=== PATIENT | male | born 1930 | race Caucasian/White ===

== ENCOUNTER 2017-07-15 02:55 | Observation (INO) | payer MEDICARE ==
[~2017-07-15] VITALS: Wt 91.8 kg
[~2017-07-15 02:55] MED LIST: ALEVE; ALTOPREV20 MG PO; ASPIR-LOW81 MG PO; ASPIRIN 81M81 MG/TA2 PO; CENTRUM SILVER1 CTB PO; DYRENIUM 50MG C50 MG PO; LEVAQUIN 750MG750 M1; NAPROSYN500 MG PO; NORCO 325 MG-51 TAB PO; PHENERGAN 25 TA25 MG PO; TUSS PO; ULTRAM 50MG TAB50 MG PO
[2017-07-15] MEDS ORDERED: ZOCOR 20MG20 MG PO (03:22)
[2017-07-15 03:52] LABS: BASO % 0.3 % (0.0-2.0); EOS # 0.2 (0.0-0.7); EOS % 2.3 % (0-4.0); GRAN # 6.4 (1.4-6.5); GRAN % 70.1 % (42.2-75.2); HEMATOCRIT 39.9 % (42.0-52.0); HEMOGLOBIN 13.9 g/dl (13.5-18.0); LYMPH # 1.6 (1.2-3.4); LYMPH % 16.9 % (20.0-51.0); MEAN CELL VOLUME 94 fl (80.0-100.0); MEAN CORPUSCULAR HEMOGLOBIN 33 pg (27.0-31.0); MEAN CORPUSCULAR HGB CONC 35 g/dl (33.0-37.0); MEAN PLATELET VOLUME 9.3 fl (7.4-10.4); MONO # 0.9 (0.1-0.6); MONO % 9.3 % (1.7-9.3); PLATELET COUNT 210 K/mm3 (130-400); RED BLOOD COUNT 4.25 M/mm3 (4.20-5.60); REDCELL DISTRIBUTION WIDTH-CV 12.7 % (11.5-14.5)
[2017-07-15 03:59] LABS: PROTHROMBIN TIME 11.3 SECONDS (9.7-12.8)
[2017-07-15 04:03] LABS: ALANINE AMINOTRANSFERASE 31 U/L (21-72); ALBUMIN 3.4 gm/dL (3.5-5.0); ALKALINE PHOSPHATASE 46 U/L (50-136); ANION GAP 13 mmol/L (7-16); AST,SGOT 24 U/L (15-37); BILIRUBIN,TOTAL 0.5 mg/dL (0.0-1.0); BLOOD UREA NITROGEN 19 mg/dL (9-20); CALCIUM 8.7 mg/dL (8.4-10.2); CARBON DIOXIDE 24 mmol/L (22-30); CHLORIDE 105 mmol/L (98-107); CREATININE, serum 0.83 mg/dL (0.66-1.25); GLUCOSE 115 mg/dL (74-106); LIPASE < 10 U/L (23-300); POTASSIUM 4.1 mmol/L (3.4-5.0); SODIUM 142 mmol/L (137-145); TOTAL PROTEIN 6.8 gm/dL (6.4-8.2)
[2017-07-15 04:55] LABS: COLLECTION METHOD CATHETER
[2017-07-15 05:06] LABS: PH 6 (5-8); SQUAMOUS EPITHELIAL None Seen /hpf; URINE APPEARANCE Clear; URINE BACTERIA None Seen /hpf; URINE BILIRUBIN Negative (NEGATIVE); URINE BLOOD Negative (NEGATIVE); URINE COLOR Yellow; URINE GLUCOSE Negative (NEGATIVE); URINE KETONE Negative (NEGATIVE); URINE LEUKOCYTE ESTERASE Negative (NEGATIVE); URINE NITRATE Negative (NEGATIVE); URINE PROTEIN(semi-quant) Negative (NEGATIVE); URINE RBC 0-2 /hpf; URINE UROBILINOGEN Negative (NEGATIVE)
[2017-07-15] MEDS ORDERED: MEVACOR 20M20 MG/TAB PO (06:11)
[2017-07-15 08:50] VITALS: BP 151/69; PULSE 63; TEMP 97.9
[2017-07-15 12:36] VITALS: BP 120/64; PULSE 60; TEMP 97.5
[2017-07-15 14:25] LABS: BASO % 0.4 % (0.0-2.0); EOS # 0.2 (0.0-0.7); EOS % 2.2 % (0-4.0); GRAN # 5.3 (1.4-6.5); HEMATOCRIT 39.2 % (42.0-52.0); HEMOGLOBIN 13.6 g/dl (13.5-18.0); LYMPH # 1.6 (1.2-3.4); LYMPH % 20.2 % (20.0-51.0); MEAN CELL VOLUME 95 fl (80.0-100.0); MEAN CORPUSCULAR HEMOGLOBIN 33 pg (27.0-31.0); MEAN CORPUSCULAR HGB CONC 35 g/dl (33.0-37.0); MEAN PLATELET VOLUME 9.3 fl (7.4-10.4); MONO # 0.7 (0.1-0.6); MONO % 8.4 % (1.7-9.3); PLATELET COUNT 214 K/mm3 (130-400); RED BLOOD COUNT 4.14 M/mm3 (4.20-5.60); REDCELL DISTRIBUTION WIDTH-CV 12.8 % (11.5-14.5)
[2017-07-15 16:21] VITALS: BP 161/73; PULSE 59; TEMP 98.2
[2017-07-15 20:01] VITALS: BP 111/52; PULSE 73; TEMP 97.3
[2017-07-16 00:24] VITALS: BP 136/55; PULSE 73; TEMP 98.2
[2017-07-16 04:00] VITALS: BP 132/66; PULSE 72; TEMP 98.5
[2017-07-16 06:46] LABS: HEMOGLOBIN 13.3 g/dl (13.5-18.0); MEAN CELL VOLUME 97 fl (80.0-100.0); MEAN CORPUSCULAR HEMOGLOBIN 33 pg (27.0-31.0); MEAN CORPUSCULAR HGB CONC 34 g/dl (33.0-37.0); MEAN PLATELET VOLUME 9.9 fl (7.4-10.4); PLATELET COUNT 220 K/mm3 (130-400); RED BLOOD COUNT 4.03 M/mm3 (4.20-5.60); REDCELL DISTRIBUTION WIDTH-CV 13.1 % (11.5-14.5)
[2017-07-16 07:24] LABS: CALCIUM 8.4 mg/dL (8.4-10.2); CREATININE, serum 1.05 mg/dL (0.66-1.25); POTASSIUM 4.1 mmol/L (3.4-5.0)
[2017-07-16 08:01] VITALS: BP 141/54; PULSE 78; TEMP 97.7
[2017-07-16 09:23] LABS: BAND 13 % (0-10); EOSINOPHIL 5 % (0-4); LYMPHOCYTE 19 % (20.0-51.0); METAMYELOCYTE 2 % (0-0); NEUTROPHILS 58 % (42.0-75.2); PLATELET ESTIMATE NORMAL (NORMAL)
[2017-07-16 11:46] VITALS: BP 128/54; PULSE 74; TEMP 97.5
[2017-07-16] MEDS ORDERED: TYLENOL 325MG325 MG PO (11:56)
[2017-07-16 13:27] VITALS: BP 128/54; PULSE 74; TEMP 97.5
[2017-07-16] MEDS ORDERED: NORCO 325 MG-51 TAB PO (14:55)
== END 2017-07-16 13:55 ==
LOC: COL.ER 02:55 → SURG 06:28
PROVIDERS: Emergency Medicine; Physician Assistant
DX: S91.112A Laceration without foreign body of left great toe without damage to nail, initial encounter (principal); W01.0XXA Fall on same level from slipping, tripping and stumbling without subsequent striking against object, initial encounter; I10 Essential (primary) hypertension; M25.562 Pain in left knee; M25.552 Pain in left hip; E78.5 Hyperlipidemia, unspecified; R53.81 Other malaise; M19.90 Unspecified osteoarthritis, unspecified site; G89.29 Other chronic pain; M54.5 Low back pain; Z90.49 Acquired absence of other specified parts of digestive tract; Z96.643 Presence of artificial hip joint, bilateral; Z96.653 Presence of artificial knee joint, bilateral; Z79.82 Long term (current) use of aspirin; Z88.8 Allergy status to other drugs, medicaments and biological substances; Z87.891 Personal history of nicotine dependence; Z85.46 Personal history of malignant neoplasm of prostate
CPT/HCPCS: 99232-AI; A4314; G0378; G8978-GP; G8979-GP; G8987-GO; G8988-GO; J1170; J2405; J3010; J7030; J7040; Q9967

== ENCOUNTER 2017-07-16 13:59 | Inpatient (IN) | payer MEDICARE ==
[~2017-07-16] VITALS: Ht 165.1 cm; Wt 93.4 kg
[~2017-07-16 13:59] MED LIST changes: +MEVACOR 20M20 MG/TAB PO; +TYLENOL 325MG325 MG PO; +ZOCOR 20MG20 MG PO
[2017-07-16 14:44] VITALS: BP 144/54; PULSE 71; TEMP 97.7
[2017-07-16] MEDS ORDERED: NORCO 325 MG-51 TAB PO (14:55)
[2017-07-16 18:12] VITALS: BP 140/55; PULSE 72; TEMP 97
[2017-07-16 19:05] LABS: BASO % 0.3 % (0.0-2.0); EOS # 0.3 (0.0-0.7); EOS % 3.6 % (0-4.0); GRAN # 5.3 (1.4-6.5); GRAN % 61.9 % (42.2-75.2); HEMATOCRIT 38.9 % (42.0-52.0); HEMOGLOBIN 13.3 g/dl (13.5-18.0); LYMPH # 2.1 (1.2-3.4); LYMPH % 23.8 % (20.0-51.0); MEAN CELL VOLUME 96 fl (80.0-100.0); MEAN CORPUSCULAR HEMOGLOBIN 33 pg (27.0-31.0); MEAN CORPUSCULAR HGB CONC 34 g/dl (33.0-37.0); MEAN PLATELET VOLUME 9.8 fl (7.4-10.4); MONO # 0.8 (0.1-0.6); MONO % 9.1 % (1.7-9.3); PLATELET COUNT 221 K/mm3 (130-400); RED BLOOD COUNT 4.07 M/mm3 (4.20-5.60); REDCELL DISTRIBUTION WIDTH-CV 12.9 % (11.5-14.5)
[2017-07-16 19:10] LABS: CALCIUM 8.6 mg/dL (8.4-10.2); CREATININE, serum 0.93 mg/dL (0.66-1.25); POTASSIUM 3.9 mmol/L (3.4-5.0)
[2017-07-17 06:22] VITALS: BP 129/58; PULSE 76; TEMP 98
[2017-07-17 16:53] VITALS: BP 144/58; PULSE 71; TEMP 97.9
[2017-07-18 06:00] VITALS: BP 157/66; PULSE 69; TEMP 98
[2017-07-18 16:36] VITALS: BP 145/65; PULSE 71; TEMP 98
[2017-07-19 05:34] VITALS: BP 176/66; PULSE 80; TEMP 97.9
[2017-07-19 18:10] VITALS: BP 136/63; PULSE 88; TEMP 98.4
[2017-07-20 06:00] VITALS: BP 134/69; PULSE 74; TEMP 98.2
[2017-07-20 17:34] VITALS: BP 130/66; PULSE 72; TEMP 97.4
[2017-07-21 06:00] VITALS: BP 156/79; PULSE 82; TEMP 98.2
[2017-07-21 16:08] VITALS: BP 129/60; PULSE 86; TEMP 98.4
[2017-07-22 05:55] VITALS: BP 132/72; PULSE 76; TEMP 98.4
[2017-07-22 16:10] VITALS: BP 155/75; PULSE 71; TEMP 98
[2017-07-23 05:11] VITALS: BP 159/73; PULSE 93; TEMP 97.6
[2017-07-23 17:28] VITALS: BP 125/40; PULSE 75; TEMP 97.7
[2017-07-24 05:14] VITALS: BP 129/63; PULSE 85; TEMP 97.9
[2017-07-24 18:07] VITALS: BP 136/63; PULSE 71; TEMP 97.9
[2017-07-25 05:17] VITALS: BP 124/55; PULSE 80; TEMP 97.9
[2017-07-25 15:58] VITALS: BP 145/87; PULSE 72; TEMP 98.6
[2017-07-26 06:25] VITALS: BP 138/74; PULSE 76; TEMP 98.6
[2017-07-26 15:28] VITALS: BP 137/48; PULSE 71; TEMP 98.5
[2017-07-27 05:47] VITALS: BP 134/69; PULSE 86; TEMP 98.4
[2017-07-27 15:41] VITALS: BP 151/64; PULSE 63; TEMP 98.4
[2017-07-28 06:12] VITALS: BP 149/75; PULSE 73; TEMP 97.6
[2017-07-28] MEDS ORDERED: GOOD SENSE TRIP1 OI1 TP (08:24)
[2017-07-28] MEDS ORDERED: SENOKOT S 50 MG1 TAB PO (08:24)
[2017-07-28] MEDS ORDERED: COLACE 100100 MG/CAP PO (08:24)
[2017-07-28] MEDS ORDERED: ASPIRIN E.C. 8181 MG PO (08:25)
[2017-07-28] MEDS ORDERED: ULTRAM 50MG TAB50 MG PO (08:26)
[2017-07-28] MEDS ORDERED: PROAIR HFA0.09 MG/AC IH (08:26)
== END 2017-07-28 12:35 | disposition home or self-care (01) | DRG 948 ==
PROVIDERS: Nurse Practitioner Family
DX: R53.81 Other malaise (principal); S70.02XD Contusion of left hip, subsequent encounter; S91.112D Laceration without foreign body of left great toe without damage to nail, subsequent encounter; I10 Essential (primary) hypertension; M54.9 Dorsalgia, unspecified; G89.29 Other chronic pain; Z85.46 Personal history of malignant neoplasm of prostate
CPT/HCPCS: 99222-AI; 99232-AI; 99239

== ENCOUNTER 2017-08-20 08:33 | Emergency (ER) | payer MEDICARE ==
[~2017-08-20] VITALS: Ht 167.6 cm; Wt 90.9 kg
[~2017-08-20 08:33] MED LIST changes: +ASPIRIN E.C. 8181 MG PO; +COLACE 100100 MG/CAP PO; +GOOD SENSE TRIP1 OI1 TP; +PROAIR HFA0.09 MG/AC IH; +SENOKOT S 50 MG1 TAB PO
[2017-08-20 08:35] VITALS: TEMP 97.8
[2017-08-20 08:56] LABS: BASO # 0.1 (0.0-0.2); BASO % 0.5 % (0.0-2.0); EOS # 0.2 (0.0-0.7); EOS % 1.7 % (0-4.0); GRAN # 6.6 (1.4-6.5); GRAN % 69.5 % (42.2-75.2); HEMATOCRIT 46.9 % (42.0-52.0); HEMOGLOBIN 16.7 g/dl (13.5-18.0); LYMPH # 1.7 (1.2-3.4); LYMPH % 18.3 % (20.0-51.0); MEAN CELL VOLUME 91 fl (80.0-100.0); MEAN CORPUSCULAR HEMOGLOBIN 33 pg (27.0-31.0); MEAN CORPUSCULAR HGB CONC 36 g/dl (33.0-37.0); MEAN PLATELET VOLUME 9.4 fl (7.4-10.4); MONO # 0.9 (0.1-0.6); MONO % 9.2 % (1.7-9.3); PLATELET COUNT 237 K/mm3 (130-400); RED BLOOD COUNT 5.14 M/mm3 (4.20-5.60); REDCELL DISTRIBUTION WIDTH-CV 13.1 % (11.5-14.5)
[2017-08-20 09:02] LABS: PROTHROMBIN TIME 10.8 SECONDS (9.7-12.8)
[2017-08-20 09:11] LABS: ALANINE AMINOTRANSFERASE 32 U/L (21-72); ALBUMIN 4.3 gm/dL (3.5-5.0); ALKALINE PHOSPHATASE 66 U/L (50-136); ANION GAP 15 mmol/L (7-16); AST,SGOT 30 U/L (15-37); BILIRUBIN,TOTAL 0.6 mg/dL (0.0-1.0); BLOOD UREA NITROGEN 14 mg/dL (9-20); CALCIUM 10.2 mg/dL (8.4-10.2); CARBON DIOXIDE 22 mmol/L (22-30); CHLORIDE 101 mmol/L (98-107); CREATININE, serum 0.81 mg/dL (0.66-1.25); GLUCOSE 134 mg/dL (74-106); SODIUM 137 mmol/L (137-145); TOTAL PROTEIN 8.6 gm/dL (6.4-8.2)
[2017-08-20 09:17] LABS: LIPASE < 10 U/L (23-300)
[2017-08-20 09:22] LABS: TROPONIN-I 0.012 ng/mL (0.000-0.034)
[2017-08-20 11:30] VITALS: BP 173/86; PULSE 70
== END 2017-08-20 11:35 | disposition home or self-care (01) ==
LOC: COL.ER 08:33
PROVIDERS: Family Medicine
DX: K30 Functional dyspepsia (principal); Z79.82 Long term (current) use of aspirin
CPT/HCPCS: C9113

== ENCOUNTER → 2017-08-23 | Outpatient (CLI) | payer MEDICARE | LOC: COL.RAD 13:43 | DX: K86.2 Cyst of pancreas (principal); Z90.49 Acquired absence of other specified parts of digestive tract | CPT/HCPCS: Q9967 ==

== ENCOUNTER 2017-08-25 18:08 | Emergency (ER) | payer MEDICARE ==
[~2017-08-25] VITALS: Ht 172.7 cm; Wt 90.9 kg
[2017-08-25 18:10] VITALS: TEMP 97.9
[2017-08-25 18:46] LABS: BASO % 0.2 % (0.0-2.0); EOS # 0.2 (0.0-0.7); EOS % 2.1 % (0-4.0); GRAN # 5.2 (1.4-6.5); GRAN % 64.3 % (42.2-75.2); HEMATOCRIT 41.8 % (42.0-52.0); HEMOGLOBIN 15.1 g/dl (13.5-18.0); LYMPH # 1.8 (1.2-3.4); LYMPH % 21.8 % (20.0-51.0); MEAN CELL VOLUME 90 fl (80.0-100.0); MEAN CORPUSCULAR HEMOGLOBIN 33 pg (27.0-31.0); MEAN CORPUSCULAR HGB CONC 36 g/dl (33.0-37.0); MEAN PLATELET VOLUME 9.3 fl (7.4-10.4); MONO # 0.9 (0.1-0.6); MONO % 10.5 % (1.7-9.3); PLATELET COUNT 230 K/mm3 (130-400); RED BLOOD COUNT 4.64 M/mm3 (4.20-5.60); REDCELL DISTRIBUTION WIDTH-CV 13.1 % (11.5-14.5)
[2017-08-25] MEDS ORDERED: PROTONIX 40MG T40 MG PO (18:50)
[2017-08-25 18:58] LABS: ALBUMIN 4.1 gm/dL (3.5-5.0); BILIRUBIN,TOTAL 0.8 mg/dL (0.0-1.0); C-REACTIVE PROTEIN 0.6 mg/dL (0.0-0.9); CALCIUM 9.4 mg/dL (8.4-10.2); CREATININE, serum 0.88 mg/dL (0.66-1.25); POTASSIUM 3.9 mmol/L (3.4-5.0)
[2017-08-25 20:12] LABS: COLLECTION METHOD CLEAN CATCH
[2017-08-25 20:24] LABS: MUCOUS Present /lpf; PH 6 (5-8); SQUAMOUS EPITHELIAL 0-2 /hpf; URINE APPEARANCE Clear; URINE BACTERIA None Seen /hpf; URINE BILIRUBIN Negative (NEGATIVE); URINE BLOOD Negative (NEGATIVE); URINE COLOR Yellow; URINE GLUCOSE Negative (NEGATIVE); URINE KETONE Trace (NEGATIVE); URINE LEUKOCYTE ESTERASE Negative (NEGATIVE); URINE NITRATE Negative (NEGATIVE); URINE PROTEIN(semi-quant) Negative (NEGATIVE); URINE RBC 0-2 /hpf; URINE UROBILINOGEN Negative (NEGATIVE)
[2017-08-25 21:20] VITALS: BP 155/72; PULSE 72
[2017-08-26] MEDS ORDERED: ALMACONE 360 M360 ML PO (14:52)
== END 2017-08-25 21:10 | disposition home or self-care (01) ==
LOC: COL.ER 18:08
PROVIDERS: Emergency Medicine
DX: R10.12 Left upper quadrant pain (principal); R10.13 Epigastric pain; Z79.82 Long term (current) use of aspirin
CPT/HCPCS: J1170; J1885; J3010; J7030

== ENCOUNTER 2017-08-26 14:17 | Day surgery (SDC) | payer MEDICARE ==
[~2017-08-26] VITALS: Ht 167.6 cm; Wt 91.5 kg
[~2017-08-26 14:17] MED LIST changes: +PROTONIX 40MG T40 MG PO
[2017-08-26 14:52] VITALS: BP 120/74; PULSE 62; TEMP 97.7
[2017-08-26] MEDS ORDERED: ALMACONE 360 M360 ML PO (14:52)
[2017-08-26 16:10] VITALS: BP 110/64; PULSE 58; TEMP 98.7
[2017-08-26 16:30] VITALS: BP 106/67; PULSE 58
[2017-08-26 16:45] VITALS: BP 115/61; PULSE 60
[2017-08-26 17:00] VITALS: BP 142/74; PULSE 68
[2017-08-26 17:15] VITALS: BP 133/74; PULSE 61
== END 2017-08-26 17:40 | disposition home or self-care (01) ==
LOC: SDCO 14:17
DX: K21.0 Gastro-esophageal reflux disease with esophagitis (principal); K29.30 Chronic superficial gastritis without bleeding
CPT/HCPCS: J2250; J3010; J7030

== ENCOUNTER 2017-09-16 09:45 | Outpatient (RCR) | payer MEDICARE ==
[~2017-09-16 09:45] MED LIST changes: +ALMACONE 360 M360 ML PO
== END 2017-09-16 12:13 | disposition home or self-care (01) ==
LOC: MKS.ESL.PT 09:45
DX: S70.02XD Contusion of left hip, subsequent encounter (principal); S91.112D Laceration without foreign body of left great toe without damage to nail, subsequent encounter; W19.XXXD Unspecified fall, subsequent encounter
CPT/HCPCS: G8978-GP; G8979-GP; G8980-GP

== ENCOUNTER 2017-09-19 10:17 | Observation (INO) | payer MEDICARE ==
[~2017-09-19] VITALS: Ht 172.7 cm; Wt 89.7 kg
[2017-09-19 11:18] LABS: COLLECTION METHOD CLEAN CATCH
[2017-09-19 11:21] LABS: HEMATOCRIT 42.1 % (42.0-52.0); HEMOGLOBIN 14.5 g/dl (13.5-18.0); MEAN CELL VOLUME 94 fl (80.0-100.0); MEAN CORPUSCULAR HEMOGLOBIN 32 pg (27.0-31.0); MEAN CORPUSCULAR HGB CONC 34 g/dl (33.0-37.0); MEAN PLATELET VOLUME 9.7 fl (7.4-10.4); PLATELET COUNT 233 K/mm3 (130-400); RED BLOOD COUNT 4.48 M/mm3 (4.20-5.60); REDCELL DISTRIBUTION WIDTH-CV 13.1 % (11.5-14.5)
[2017-09-19 11:25] LABS: MUCOUS Present /lpf; PH 6 (5-8); SQUAMOUS EPITHELIAL None Seen /hpf; URINE APPEARANCE Clear; URINE BACTERIA None Seen /hpf; URINE BILIRUBIN Negative (NEGATIVE); URINE BLOOD Negative (NEGATIVE); URINE COLOR Yellow; URINE GLUCOSE Negative (NEGATIVE); URINE KETONE Negative (NEGATIVE); URINE LEUKOCYTE ESTERASE Negative (NEGATIVE); URINE NITRATE Negative (NEGATIVE); URINE PROTEIN(semi-quant) 1+ (NEGATIVE); URINE RBC 0-2 /hpf; URINE UROBILINOGEN Negative (NEGATIVE)
[2017-09-19 11:32] LABS: ALANINE AMINOTRANSFERASE 30 U/L (21-72); ALBUMIN 3.9 gm/dL (3.5-5.0); ALKALINE PHOSPHATASE 45 U/L (50-136); ANION GAP 11 mmol/L (7-16); AST,SGOT 20 U/L (15-37); BILIRUBIN,TOTAL 0.4 mg/dL (0.0-1.0); BLOOD UREA NITROGEN 17 mg/dL (9-20); CALCIUM 9.4 mg/dL (8.4-10.2); CARBON DIOXIDE 24 mmol/L (22-30); CHLORIDE 103 mmol/L (98-107); CREATININE, serum 0.89 mg/dL (0.66-1.25); GLUCOSE 112 mg/dL (74-106); POTASSIUM 4.3 mmol/L (3.4-5.0); SODIUM 139 mmol/L (137-145); TOTAL PROTEIN 7.1 gm/dL (6.4-8.2)
[2017-09-19 11:34] LABS: LIPASE < 10 U/L (23-300)
[2017-09-19 11:42] LABS: TROPONIN-I < 0.012 ng/mL (0.000-0.034)
[2017-09-19 12:16] LABS: BAND 14 % (0-10); LYMPHOCYTE 20 % (20.0-51.0); NEUTROPHILS 61 % (42.0-75.2); PLATELET ESTIMATE NORMAL (NORMAL)
[2017-09-19 15:53] VITALS: BP 143/70; PULSE 62; TEMP 98.4
[2017-09-19 20:09] VITALS: BP 151/61; PULSE 62; TEMP 98.1
[2017-09-20 01:11] VITALS: BP 141/75; PULSE 63; TEMP 97.9
[2017-09-20 04:05] VITALS: BP 153/60; PULSE 56; TEMP 97.9
[2017-09-20 07:07] VITALS: BP 172/71; PULSE 69; TEMP 98.6
[2017-09-20 07:33] LABS: ALANINE AMINOTRANSFERASE 30 U/L (21-72); ALBUMIN 3.5 gm/dL (3.5-5.0); ALKALINE PHOSPHATASE 44 U/L (50-136); ANION GAP 7 mmol/L (7-16); AST,SGOT 21 U/L (15-37); BILIRUBIN,TOTAL 0.5 mg/dL (0.0-1.0); BLOOD UREA NITROGEN 14 mg/dL (9-20); CALCIUM 8.8 mg/dL (8.4-10.2); CARBON DIOXIDE 28 mmol/L (22-30); CHLORIDE 103 mmol/L (98-107); CREATININE, serum 0.94 mg/dL (0.66-1.25); GLUCOSE 89 mg/dL (74-106); POTASSIUM 4.1 mmol/L (3.4-5.0); SODIUM 139 mmol/L (137-145); TOTAL PROTEIN 6.5 gm/dL (6.4-8.2)
[2017-09-20 07:38] LABS: HEMATOCRIT 39.1 % (42.0-52.0); HEMOGLOBIN 13.5 g/dl (13.5-18.0); MEAN CELL VOLUME 95 fl (80.0-100.0); MEAN CORPUSCULAR HEMOGLOBIN 33 pg (27.0-31.0); MEAN CORPUSCULAR HGB CONC 35 g/dl (33.0-37.0); MEAN PLATELET VOLUME 9.8 fl (7.4-10.4); PLATELET COUNT 218 K/mm3 (130-400); RED BLOOD COUNT 4.12 M/mm3 (4.20-5.60); REDCELL DISTRIBUTION WIDTH-CV 12.9 % (11.5-14.5)
[2017-09-20 07:40] LABS: TROPONIN-I < 0.012 ng/mL (0.000-0.034)
[2017-09-20 08:21] LABS: BAND 7 % (0-10); EOSINOPHIL 2 % (0-4); LYMPHOCYTE 24 % (20.0-51.0); NEUTROPHILS 57 % (42.0-75.2)
[2017-09-20 08:22] LABS: PLATELET ESTIMATE NORMAL (NORMAL)
[2017-09-20 11:37] VITALS: BP 129/51; PULSE 55; TEMP 97.6
[2017-09-20 12:05] VITALS: BP 121/69; PULSE 91; TEMP 97.8
[2017-09-20] MEDS ORDERED: LIPITOR 40MG TA40 MG PO (14:30)
[2017-09-20] MEDS ORDERED: ASPI325T6 PO (14:30)
== END 2017-09-20 16:30 | disposition home or self-care (01) ==
LOC: COL.ER 10:17 → MEDICAL 13:26
PROVIDERS: Emergency Medicine; Family Medicine; Internal Medicine
DX: G45.9 Transient cerebral ischemic attack, unspecified (principal); F03.90 Unspecified dementia, unspecified severity, without behavioral disturbance, psychotic disturbance, mood disturbance, and anxiety; I10 Essential (primary) hypertension; E78.5 Hyperlipidemia, unspecified; K21.9 Gastro-esophageal reflux disease without esophagitis; R73.9 Hyperglycemia, unspecified; I45.10 Unspecified right bundle-branch block; I08.1 Rheumatic disorders of both mitral and tricuspid valves; Z79.82 Long term (current) use of aspirin; Z85.46 Personal history of malignant neoplasm of prostate; Z87.891 Personal history of nicotine dependence; Z82.49 Family history of ischemic heart disease and other diseases of the circulatory system
CPT/HCPCS: A9585; G0378; G8978-GP; G8979-GP; G8987-GO; G8988-GO; J7030

== ENCOUNTER 2017-10-07 11:15 | Outpatient (RCR) | payer MEDICARE ==
[~2017-10-07 11:15] MED LIST changes: +ASPI325T6 PO; +LIPITOR 40MG TA40 MG PO
== END 2017-12-20 | disposition home or self-care (01) ==
LOC: MKS.ESL.PT
DX: R55 Syncope and collapse (principal); R41.82 Altered mental status, unspecified; R26.89 Other abnormalities of gait and mobility; Z91.81 History of falling; Z79.82 Long term (current) use of aspirin; Z79.899 Other long term (current) drug therapy
CPT/HCPCS: G8978-GP; G8979-GP